=== PATIENT | male | born 1990 | race Caucasian/White ===

== ENCOUNTER 2020-06-28 11:38 | Inpatient (IN) | payer OTHER ==
[2020-06-28 13:01] VITALS: BMI 21.4
[2020-06-28] MEDS ORDERED: MAG HYDROX/AL HYDROX/SIMETH 30 ML UNIT-DOSE CUP PO PRN (13:51)
[2020-06-28] MEDS ORDERED: cloNIDine HCL 0.1 MG TABLET PO PRN (13:51)
[2020-06-28] MEDS ORDERED: NICOTINE POLACRILEX 2 MG GUM BUC PRN (13:51)
[2020-06-28] MEDS ORDERED: IBUPROFEN 400 MG TABLET (FP) PO PRN (13:51)
[2020-06-28] MEDS ORDERED: BISMUTH SUBSALICYLATE 262 MG/15 ML BTL PO PRN (13:51)
[2020-06-28] MEDS ORDERED: ONDANSETRON *ODT* 4 MG TABLET SL PRN (13:51)
[2020-06-28] MEDS ORDERED: MAGNESIUM CITRATE 300 ML BOTTLE PO PRN (13:51)
[2020-06-28] MEDS ORDERED: MENTHOL/PHENOL 1 EACH UD MM PRN (13:51)
[2020-06-28] MEDS ORDERED: METHADONE HCL 10 MG TABLET (FOR DETOX USE ONLY) PO ONE (13:51)
[2020-06-28] MEDS ORDERED: ACETAMINOPHEN 325 MG TABLET (FP) PO PRN ×2 (13:51)
[2020-06-28] MEDS ORDERED: NALOXONE (NARCAN) HCL 4 MG/0.1 ML SPRAY NS PRN (13:51)
[2020-06-28] MEDS ORDERED: MAGNESIUM HYDROX 2400MG/30ML ORAL SUSPENSION 30 ML CUP PO PRN (13:51)
[2020-06-28 15:01] LABS: HEMATOCRIT 36.2 % (35.4-49); HEMOGLOBIN 12.1 GM/dL (11.7-16.9); MCH 29.8 pg (25.7-33.7); MCHC 33.5 g/dl (32.0-35.9); MEAN CELL VOLUME 89.2 fl (80-96); MEAN PLT VOLUME 8.7 fl (7.5-11.1); PLATELET COUNT 265 K/MM3 (134-434); RBC 4.06 M/mm3 (4.00-5.60); RDW 13.8 % (11.9-15.9); WHITE BLOOD COUNT 10.9 K/mm3 (4.0-10.0)
[2020-06-28 15:04] LABS: ALBUMIN 3.4 g/dl (3.4-5.0); BLOOD UREA NITROGEN 9.6 mg/dL (7-18); CALCIUM 9.2 mg/dL (8.5-10.1)
[2020-06-28 15:06] LABS: CREATININE 0.7 mg/dL (0.55-1.3)
[2020-06-28] MEDS: hydrOXYzine PAMOATE 25 MG CAPSULE (FP) PO SCH ×3 (15:07→22:20)
[2020-06-28] MEDS: NICOTINE 14 MG/24 HOURS TOPICAL PATCH TD SCH (15:07)
[2020-06-28] MEDS: PRENATAL VITAMINS W/ FOLIC ACID TABLET (FP) PO SCH (15:07)
[2020-06-28 15:09] LABS: BILIRUBIN,TOTAL 0.3 mg/dL (0.2-1); TOT PROT 7.7 g/dl (6.4-8.2)
[2020-06-28] MEDS: AMOX TR/POT CLAV 875MG/125MG TABLETS (FP) PO SCH (17:55)
[2020-06-28] MEDS: MELATONIN 5 MG TABLETS PO SCH (22:20)
[2020-06-28] MEDS: THIAMINE HCL 100 MG TABLET (FP) PO SCH (22:20)
[2020-06-29] MEDS: AMOX TR/POT CLAV 875MG/125MG TABLETS (FP) PO SCH ×2 (06:59→17:26)
[2020-06-29] MEDS: hydrOXYzine PAMOATE 25 MG CAPSULE (FP) PO SCH ×5 (06:59→22:16)
[2020-06-29] MEDS ORDERED: METHADONE HCL 10 MG TABLET (FOR DETOX USE ONLY) ONE (09:57)
[2020-06-29] MEDS ORDERED: METHADONE HCL 5 MG TABLET (FOR DETOX USE ONLY) ONE (09:57)
[2020-06-29] MEDS ORDERED: METHADONE (DETOX) 20 MG, METHADONE (DETOX) 5 MG PO ONE (10:00)
[2020-06-29] MEDS: METHOCARBAMOL 500 MG TABLET PO PRN (10:46)
[2020-06-29] MEDS: PRENATAL VITAMINS W/ FOLIC ACID TABLET (FP) PO SCH (10:47)
[2020-06-29] MEDS: NICOTINE 14 MG/24 HOURS TOPICAL PATCH TD SCH (10:48)
[2020-06-29 14:44] LABS: HIV INTERPRETATION NEGATIVE (NEGATIVE)
[2020-06-29] MEDS: THIAMINE HCL 100 MG TABLET (FP) PO SCH (22:16)
[2020-06-29] MEDS: MELATONIN 5 MG TABLETS PO SCH (22:16)
[2020-06-30] MEDS: hydrOXYzine PAMOATE 25 MG CAPSULE (FP) PO SCH ×5 (06:19→22:33)
[2020-06-30] MEDS: AMOX TR/POT CLAV 875MG/125MG TABLETS (FP) PO SCH ×2 (07:04→18:56)
[2020-06-30] MEDS ORDERED: METHADONE HCL 10 MG TABLET (FOR DETOX USE ONLY) PO ONE (10:00)
[2020-06-30] MEDS: PRENATAL VITAMINS W/ FOLIC ACID TABLET (FP) PO SCH (10:17)
[2020-06-30] MEDS: NICOTINE 14 MG/24 HOURS TOPICAL PATCH TD SCH (10:17)
[2020-06-30] MEDS: MELATONIN 5 MG TABLETS PO SCH (22:33)
[2020-06-30] MEDS: THIAMINE HCL 100 MG TABLET (FP) PO SCH (22:33)
[2020-07-01] MEDS: hydrOXYzine PAMOATE 25 MG CAPSULE (FP) PO SCH (06:09)
[2020-07-01] MEDS: METHOCARBAMOL 500 MG TABLET PO PRN (06:09)
[2020-07-01 06:42] VITALS: BP 107/63; PULSE 75; TEMP 96.4
[2020-07-01] MEDS: AMOX TR/POT CLAV 875MG/125MG TABLETS (FP) PO SCH (08:01)
[2020-07-01] MEDS ORDERED: METHADONE (DETOX) 10 MG, METHADONE (DETOX) 5 MG PO ONE (10:00)
[2020-07-01 10:06] LABS: SARS-CoV-2 NAA Not Detected (Not Detected)
[2020-07-02] MEDS ORDERED: METHADONE HCL 10 MG TABLET (FOR DETOX USE ONLY) PO ONE (10:00)
[2020-07-03] MEDS ORDERED: METHADONE HCL 5 MG TABLET (FOR DETOX USE ONLY) PO ONE (06:00)
== END 2020-07-01 08:40 | disposition left against medical advice (07) | DRG 770 ==
LOC: YASAS 11:38 → Y3N 13:48
PROVIDERS: ADMIT Allergy & Immunology; ATTEND Allergy & Immunology
PROC: HZ2ZZZZ Detoxification Services for Substance Abuse Treatment (ICD-10-PCS; principal; 2020-06-28)
DX: F11.23 Opioid dependence with withdrawal (principal); F14.20 Cocaine dependence, uncomplicated; F15.10 Other stimulant abuse, uncomplicated; F17.210 Nicotine dependence, cigarettes, uncomplicated; L03.113 Cellulitis of right upper limb; D72.829 Elevated white blood cell count, unspecified; R74.8 Abnormal levels of other serum enzymes; R73.9 Hyperglycemia, unspecified
CPT/HCPCS: 36415; 80053; 85027; 86780; 87389; C9803; U0003; U0005

== ENCOUNTER 2020-10-21 19:39 | Inpatient (IN) | payer OTHER ==
[2020-10-21 20:10] VITALS: BMI 19.9
[2020-10-21] MEDS ORDERED: BISMUTH SUBSALICYLATE 524 MG/30 ML PO PRN (20:27)
[2020-10-21] MEDS ORDERED: MENTHOL/PHENOL 1 EACH UD MM PRN (20:27)
[2020-10-21] MEDS ORDERED: MAGNESIUM CITRATE 300 ML BOTTLE PO PRN (20:27)
[2020-10-21] MEDS ORDERED: ONDANSETRON *ODT* 4 MG TABLET SL PRN (20:27)
[2020-10-21] MEDS ORDERED: ACETAMINOPHEN 325 MG TABLET (FP) PO PRN ×2 (20:27)
[2020-10-21] MEDS ORDERED: MAGNESIUM HYDROX 2400MG/30ML ORAL SUSPENSION 30 ML CUP PO PRN (20:27)
[2020-10-21] MEDS ORDERED: MAG HYDROX/AL HYDROX/SIMETH 30 ML UNIT-DOSE CUP PO PRN (20:27)
[2020-10-21] MEDS ORDERED: IBUPROFEN 400 MG TABLET (FP) PO PRN (20:27)
[2020-10-21] MEDS ORDERED: NICOTINE POLACRILEX 2 MG GUM BUC PRN (20:27)
[2020-10-21] MEDS ORDERED: cloNIDine HCL 0.1 MG TABLET PO PRN (20:31)
[2020-10-22] MEDS: METHOCARBAMOL 500 MG TABLET PO PRN ×2 (01:24→10:32)
[2020-10-22] MEDS: hydrOXYzine PAMOATE 25 MG CAPSULE (FP) PO PRN ×2 (01:24→22:22)
[2020-10-22] MEDS: THIAMINE HCL 100 MG TABLET (FP) PO SCH ×2 (01:28→22:21)
[2020-10-22] MEDS: MELATONIN 5 MG TABLETS PO SCH ×2 (01:28→22:21)
[2020-10-22] MEDS ORDERED: cloNIDine HCL 0.1 MG TABLET PO PRN (09:58)
[2020-10-22] MEDS ORDERED: methaDONE HCL 10 MG TABLET (FOR DETOX USE ONLY) PO ONE (09:58)
[2020-10-22] MEDS ORDERED: diazePAM 5 MG TABLET PO PRN (09:59)
[2020-10-22 10:23] LABS: HEMATOCRIT 39.1 % (35.4-49); HEMOGLOBIN 13.3 GM/dL (11.7-16.9); MCHC 34.1 g/dl (32.0-35.9); MEAN CELL VOLUME 87.9 fl (80-96); MEAN PLT VOLUME 9.2 fl (7.5-11.1); PLATELET COUNT 240 10^3/uL (134-434); RBC 4.45 M/mm3 (4.00-5.60); RDW 14.6 % (11.9-15.9); WHITE BLOOD COUNT 5.3 K/mm3 (4.0-10.0)
[2020-10-22] MEDS: PRENATAL VITAMINS W/ FOLIC ACID TABLET (FP) PO SCH (10:31)
[2020-10-22 11:19] LABS: ALBUMIN 3.4 g/dl (3.4-5.0); BILIRUBIN,TOTAL 0.5 mg/dL (0.2-1); BLOOD UREA NITROGEN 8.4 mg/dL (7-18); CALCIUM 8.5 mg/dL (8.5-10.1); CREATININE 0.8 mg/dL (0.55-1.3); TOT PROT 7.2 g/dl (6.4-8.2)
[2020-10-22] MEDS ORDERED: QUEtiapine FUMARATE 100 MG TABLET (FP) PO SCH (22:00)
[2020-10-23] MEDS ORDERED: methaDONE HCL 10 MG TABLET (FOR DETOX USE ONLY) ONE (08:55)
[2020-10-23 10:17] VITALS: BP 101/63; PULSE 62; TEMP 97.8
[2020-10-23] MEDS: PRENATAL VITAMINS W/ FOLIC ACID TABLET (FP) PO SCH (10:36)
[2020-10-23] MEDS: METHOCARBAMOL 500 MG TABLET PO PRN (10:36)
[2020-10-23] MEDS: hydrOXYzine PAMOATE 25 MG CAPSULE (FP) PO PRN (10:36)
[2020-10-24] MEDS ORDERED: methaDONE HCL 10 MG TABLET (FOR DETOX USE ONLY) PO ONE (10:00)
[2020-10-26] MEDS ORDERED: methaDONE HCL 10 MG TABLET (FOR DETOX USE ONLY) PO ONE (10:00)
== END 2020-10-23 11:17 | disposition left against medical advice (07) | DRG 770 ==
LOC: YASAS 19:39 → UNDOADMIN 23:04 → Y3N 23:04
PROVIDERS: ADMIT Allergy & Immunology; ATTEND Allergy & Immunology
PROC: HZ2ZZZZ Detoxification Services for Substance Abuse Treatment (ICD-10-PCS; principal; 2020-10-21)
DX: F11.23 Opioid dependence with withdrawal (principal); F11.220 Opioid dependence with intoxication, uncomplicated; F14.20 Cocaine dependence, uncomplicated; F17.210 Nicotine dependence, cigarettes, uncomplicated; F20.9 Schizophrenia, unspecified; B18.2 Chronic viral hepatitis C; Z56.0 Unemployment, unspecified; Z59.0 Homelessness
CPT/HCPCS: 36415; 80053; 85027; 86780; C9803; J0735; U0003; U0005